=== PATIENT | female | born 1990 | race Native Hawaiian/Other Pacific Islander ===

== ENCOUNTER 2017-06-10 19:44 | Emergency (ER) | payer OTHER ==
--- NOTE | 2017-06-10 20:37 | ED PDOC ---
HPI: Chest Pain Time Seen by Provider: 06/10/17 20:00 Chief Complaint (Nursing): Chest Pain Chief Complaint (Provider): Chest Pain History Per: Patient History/Exam Limitations: no limitations Onset/Duration Of Symptoms: Hrs (x2 hrs) Current Symptoms Are (Timing): Better Additional Complaint(s): 26 y/o female presents to the emergency department after she was walking in [facility] and began to feel short of breath with intermittent chest pain around 1830 today, 06/10/2017. Patient reports pain has resolved since but still feel pleuritic pain. Denies hx of deep vein thrombosis (DVT), leg pain, any recent travels, prior episodes of chest pain, fever, vomiting or diarrhea. Past Medical History Reviewed: Historical Data Vital Signs: Last Vital Signs Temp 98 F 06/10/17 22:51 Pulse 82 06/10/17 22:51 Resp 17 06/10/17 22:51 BP 107/61 06/10/17 22:51 Pulse Ox 98 06/10/17 22:55 - Medical History PMH: No Chronic Diseases - Surgical History Surgical History: No Surg Hx - Family History Family History: States: [place] (Father at 44 years of age) - Social History Current smoker - smoking cessation education provided: No Alcohol: None Drugs: Denies - Allergies Allergies/Adverse Reactions: Allergies Allergy/AdvReac Type Severity Reaction Status Date / Time No Known Allergies Allergy Verified 06/10/17 19:55 Review of Systems ROS Statement: Except As Marked, All Systems Reviewed And Found Negative (As per HPI, otherwise negative) Constitutional: Negative for: Fever, Other (History of DVT, leg pain, or any recent travel) Cardiovascular: Positive for: Chest Pain (Intermittent) Respiratory: Positive for: Shortness of Breath. Negative for: Cough Gastrointestinal: Negative for: Vomiting, Diarrhea Physical Exam - Reviewed Nursing Documentation Reviewed: Yes Vital Signs Reviewed: Yes - Physical Exam Appears: Positive for: Non-toxic, No Acute Distress Head Exam: Positive for: ATRAUMATIC, NORMAL INSPECTION, NORMOCEPHALIC Skin: Positive for: Normal Color, Warm, Dry ENT: Positive for: Normal ENT Inspection. Negative for: Pharyngeal Erythema Neck: Positive for: Normal, Supple Cardiovascular/Chest: Positive for: Regular Rate, Rhythm. Negative for: Murmur Respiratory: Positive for: Normal Breath Sounds. Negative for: Accessory Muscle Use, Respiratory Distress Gastrointestinal/Abdominal: Positive for: Normal Exam, Soft. Negative for: Tenderness Extremity: Positive for: Normal ROM. Negative for: Pedal Edema, Other ( Negative homans sign) Neurologic/Psych: Positive for: Alert, Oriented (x3) - Laboratory Results Result Diagrams: 06/10/17 20:40 06/10/17 20:40 - ECG O2 Sat by Pulse Oximetry: 98 (RA) Pulse Ox Interpretation: Normal Medical Decision Making Medical Decision Making: Time: 2029 Initial Impression: Intermittent Chest Pain and Shortness of breath rule out cardiac, pulmonary embolism, and pneumonia Initial Plan: --CMP --Troponin I --CBC w/ diff --D Dimer (COAG) --PTT & Prothrombin --Chest x-ray --Reevaluation Time: 2039 --D-Dimer, Quantitative: 142 Time: 2217 --Patients potassium was low and sugar was high. --Patient was made aware and feels better. --Chest x-ray was negative. --Labs were normal. --Potassium Chloride 20 meq PO ordered --EKG: Normal sinus rhythm at [address] elevation. No ST segment. Time: 2252 --Patient is feeling better, is medically stable, and requires no further treatment in the ED at this time. Patient will be discharged home. Counseling was provided and all questions were answered regarding diagnosis and need for follow up with referred clinics. There is agreement to discharge plan. Return if symptoms persist or worsen. Clinical Impression: Chest pain Scribe~Attestation: Documented by Luisa Morales, acting as a scribe for Zina Pettit MD. Provider Scribe~Attestation: All medical record entries made by the Scribe were at my direction and personally dictated by me. I have reviewed the chart and agree that the record accurately reflects my personal performance of the history, physical exam, medical decision making, and the department course for this patient. I have also personally directed, reviewed, and agree with the discharge instructions and disposition. Disposition - Clinical Impression Clinical Impression: Chest pain - Patient ED Disposition Is Patient to be Admitted: No Counseled Patient/Family Regarding: Diagnosis, Need For Followup - Disposition Referrals: [facility] [Outside] [facility] [Outside] Disposition: Routine/Home Disposition Time: 22:50 Condition: IMPROVED Additional Instructions: follow up with your primary doctor/referral to clinic for follow up. return to the ED with any worsening or concerning symptoms Instructions: Chest Pain (ED) Forms: [employer] ([place])
[2017-06-10 20:54] LABS: BASO % 0.5 % (0.0-2.0); EOS % 0.4 % (0.0-4.0); HEMOGLOBIN 12.8 g/dL (12.0-16.0); LYMPH # 1.6 K/uL (1.0-4.3); LYMPH % 21.9 % (20.0-40.0); MEAN CELL VOLUME 84.5 fl (81.0-99.0); MEAN CORPUSCULAR HEMOGLOBIN 27.3 pg (27.0-31.0); MEAN CORPUSCULAR HGB CONC 32.3 g/dL (33.0-37.0); MEAN PLATELET VOLUME 9.7 fl (7.2-11.7); MONO # 0.5 K/uL (0.0-0.8); MONO % 6.1 % (0.0-10.0); NEUT # 5.2 K/uL (1.8-7.0); NEUT % 71.1 % (50.0-75.0); NRBC % 0.2 % (0.0-0.0); RBC 4.7 Mil/uL (3.80-5.20); WHITE BLOOD COUNT 7.3 K/uL (4.8-10.8)
[2017-06-10 21:08] LABS: INR 1.1 (0.9-1.2); PARTIAL THROMBOPLASTIN TIME 28.1 Seconds (25.6-37.1); PROTHROMBIN TIME 12.7 Seconds (9.8-13.1)
[2017-06-10 21:30] LABS: ALB/GLOB RATIO 1.4 (1.0-2.1); ALBUMIN 4.7 g/dL (3.5-5.0); ALT/SGPT 20 U/L (9-52); AST/SGOT 32 U/L (14-36); BLOOD UREA NITROGEN 9 mg/dl (7-17); CALCIUM 9.3 mg/dL (8.4-10.2); GFR AFRICAN-AMERICAN > 60; GFR NON-AFRICAN AMERICAN > 60
[2017-06-10] MEDS ORDERED: Potassium Chloride 20 mEq ER Tab PO ONE ×2 (22:18→22:33)
[2017-06-10 22:52] VITALS: BP 107/61; PULSE 82; RESP 17; TEMP 98
[2017-06-10 22:55] VITALS: O2SAT 98
--- NOTE | 2017-06-11 09:53 | RAD ---
HISTORY: chest pain COMPARISON: No prior. TECHNIQUE: Chest PA and lateral FINDINGS: LUNGS: No active pulmonary disease. PLEURA: No significant pleural effusion identified. No pneumothorax apparent. CARDIOVASCULAR: Normal. OSSEOUS STRUCTURES: No significant abnormalities. VISUALIZED UPPER ABDOMEN: Normal. OTHER FINDINGS: None. IMPRESSION: No active disease.
== END 2017-06-10 22:52 | disposition home or self-care (01) ==
LOC: H.ER 19:44
DX: R07.89 Other chest pain (principal)